=== PATIENT | male | born 1970 | race Caucasian/White ===

== ENCOUNTER 2022-08-12 08:03 | Emergency (ER) | payer BC ==
[2022-08-12 08:09] VITALS: RESP 18
[2022-08-12] MEDS ORDERED: DIPH,PERTUS(ACELL)TETVAC-LF 0.5 ML VIAL IM ONE (08:21)
--- NOTE | 2022-08-12 08:23 | ED ---
Upper Extremity HPI - General Chief Complaint: Extremity Injury, Upper Stated Complaint: [facility] - finger injury Time Seen by Provider: 08/12/22 08:04 Source: patient, EMS, RN notes reviewed Mode of arrival: EMS Limitations: physical limitation - History of Present Illness Initial Comments: This is a 51-year-old male who presents to the emergency department for an injury to the left index finger. He was at work, when a machine came down and crushed his finger. He was given morphine by EMS on route which he states was helpful. Unsure when his last tetanus vaccine was. Denies any fevers, chills, sore throat, cough, dyspnea, chest pain, palpitations, abdominal pain, nausea, vomiting, diarrhea, back pain, or headaches. MD Complaint: Injury to:: left, finger Place: work Context: crush - Related Data Previous Rx's Medication Instructions Recorded Cephalexin [Keflex] 500 mg PO Q6HR 5 Days #20 cap 08/12/22 Allergies Allergy/AdvReac Type Severity Reaction Status Date / Time No Known Allergies Allergy Verified 08/12/22 08:10 Review of Systems ROS Statement: Those systems with pertinent positive or pertinent negative responses have been documented in the HPI. ROS Other: All systems not noted in ROS Statement are negative. Past Medical History History of Any Multi-Drug Resistant Organisms: None Reported Past Psychological History: Anxiety Smoking Status: Current every day smoker Past Alcohol Use History: Occasional Past Drug Use History: None Reported General Exam Limitations: physical limitation General appearance: alert, in no apparent distress Head exam: Present: atraumatic, normocephalic, normal inspection Respiratory exam: Present: normal lung sounds bilaterally. Absent: respiratory distress, wheezes, rales, rhonchi, stridor Cardiovascular Exam: Present: regular rate, normal rhythm, normal heart sounds. Absent: systolic murmur, diastolic murmur, rubs, gallop, clicks Extremities exam: Present: other (Swelling and ecchymosis to the left index finger with 1 cm horizontal laceration to the dorsal aspect and a 2 cm laceration to the ventral aspect and obvious indentation deformity.) Neurological exam: Present: alert, oriented X3, CN II-XII intact Psychiatric exam: Present: normal affect, normal mood Skin exam: Present: warm, dry, intact, normal color. Absent: rash Course Vital Signs 08/12/22 08/12/22 08:04 09:18 Temperature 97.6 F Pulse Rate 83 101 H Respiratory 18 18 Rate Blood Pressure 129/106 155/100 O2 Sat by Pulse 94 L 97 Oximetry Procedures - Laceration Laceration #1 Consent Obtained: verbal consent Indication: laceration Site: other (left index finger) Size (cm): 1 Description: linear Depth: simple, single layer Anesthetic Used: lidocaine 1% Anesthesia Technique: local infiltration Amount (mls): 1 Pre-repair: irrigated extensively Type of Sutures: nylon Size of Sutures: 5-0 Number of Sutures: 2 Technique: simple, interrupted Laceration #2 Consent Obtained: verbal consent Indication: laceration Site: other (left index finger) Size (cm): 2 Description: linear Depth: simple, single layer Anesthetic Used: lidocaine 1% Anesthesia Technique: local infiltration Amount (mls): 2 Pre-repair: irrigated extensively Type of Sutures: nylon Size of Sutures: 5-0 Number of Sutures: 3 Technique: simple, interrupted Medical Decision Making - Medical Decision Making This is a 51-year-old male who presents to the emergency department for a crush injury to the left index finger. X-rays did not identify any fractures. However, this was a suboptimal exam due to the patient's inability to straighten the finger. Patient's tetanus status was updated. 2 of the lacerations, one on the dorsal aspect and another on the ventral aspect were repaired with sutures. Given that this was a dirty injury, will put the patient on a five-day course of Keflex for infection prophylaxis. He is instructed to take ibuprofen and Tylenol as needed for pain relief, to apply ice for 10-15 minutes every 2-3 hours, and to keep the finger elevated. He is also instructed to return in 5-7 days for suture removal. Return precautions reviewed in depth, the patient is instructed to return to the emergency department with any new, worsening, or concerning symptoms. Patient verbalized understanding. This case was discussed in detail with the attending ED physician. Presentation, findings, and treatment plan discussed in detail as well. - Radiology Data Radiology results: report reviewed, image reviewed Disposition Clinical Impression: Crushing injury of finger of left hand Disposition: HOME SELF-CARE Instructions (If sedation given, give patient instructions): Care For Your Stitches (ED), Jammed Finger (ED), Crush Injury (ED) Additional Instructions: Return to the emergency department with any new, worsening, or concerning symptoms and in 5-7 days for removal of your stitches. Take the antibiotic as prescribed for 5 days. Alternate with ibuprofen and Tylenol as needed for pain relief. Continue to apply ice for 10-15 minutes every 2-3 hours and keep the finger elevated. Prescriptions: Cephalexin [Keflex] 500 mg PO Q6HR 5 Days #20 cap Is patient prescribed a controlled substance at d/c from ED?: No Referrals: None,Stated [Primary Care Provider] - 1-2 days
--- NOTE | 2022-08-12 09:03 | XR ---
EXAMINATION TYPE: XR finger LT DATE OF EXAM: 08/12/2022 COMPARISON: NONE HISTORY: Crush injury with pain TECHNIQUE: 3 views left second finger are acquired FINDINGS: Evaluation is suboptimal due to incomplete extension of the finger. There is distortion of the second metacarpal. No acute displaced fracture clearly seen in the second finger. Focal moderate diffuse soft tissue swelling noted. IMPRESSION: As above.
[2022-08-12] MEDS ORDERED: LIDOCAINE 1% INJ 10MG/ML (20 ML MDV) SQ ONE (09:10)
[2022-08-12 10:33] VITALS: BP 135/82; PULSE 75; TEMP 97.8
== END 2022-08-12 10:33 | disposition home or self-care (01) ==
LOC: EC 08:03
DX: S61.211A Laceration without foreign body of left index finger without damage to nail, initial encounter (principal); Y92.69 Other specified industrial and construction area as the place of occurrence of the external cause; Y99.0 Civilian activity done for income or pay; Z23 Encounter for immunization; F17.200 Nicotine dependence, unspecified, uncomplicated
CPT/HCPCS: 73140; 90715; 90471; 12002; 99284; J2001